=== PATIENT | male | born 1960 | race Caucasian/White ===

== ENCOUNTER 2017-04-23 14:45 | Emergency (ER) | payer OTHER ==
--- NOTE | 2017-04-23 14:45 | NUR ---
[facility]IB EMS who state pt was found ambulatory in a residential driveway with ETOH intoxication. On arrival pt stated he did not want to be seen. EMS brought pt's bicycle and pt was last seen walking towards his bycycle outside the ER. Security was notified.
== END 2017-04-23 14:52 | disposition left against medical advice (07) ==
LOC: ER 14:46
DX: Z53.21 Procedure and treatment not carried out due to patient leaving prior to being seen by health care provider (principal)

== ENCOUNTER 2022-02-26 20:18 | Emergency (ER) | payer MEDICARE, OTHER ==
[~2022-02-26] VITALS: Ht 172.7 cm; Wt 79.4 kg
[2022-02-26] MEDS ORDERED: TAMS-3 PO (21:49)
[2022-02-26] MEDS ORDERED: DAPA10TA PO (21:49)
[2022-02-26] MEDS ORDERED: LISI30TA4 PO (21:49)
[2022-02-26] MEDS ORDERED: ATOR80TA PO (21:49)
[2022-02-26] MEDS ORDERED: FENO145T21 PO (21:49)
--- NOTE | 2022-02-26 21:50 | NUR ---
After being triaged, patient was placed back in the waiting room due to no beds available in the ER.
--- NOTE | 2022-02-26 22:30 | NUR ---
Patient went up to registration window and stated to box office clerk that he did not want to wait anymore. Patient was seen leaving the ER. PATIENT WAS TRIAGED BUT NOT SEEN BY ERMD.
[2022-02-27] MEDS ORDERED: CEPH500C2 PO (19:03)
[2022-02-27] MEDS ORDERED: NEOM28.38 TP (19:03)
== END 2022-02-26 23:00 | disposition left against medical advice (07) ==
LOC: ER 20:38
DX: Z53.21 Procedure and treatment not carried out due to patient leaving prior to being seen by health care provider (principal)

== ENCOUNTER 2022-02-27 15:56 | Emergency (ER) | payer MEDICARE ==
[~2022-02-27] VITALS: Ht 172.7 cm; Wt 79.4 kg
[~2022-02-27 15:56] MED LIST: ATOR80TA PO; DAPA10TA PO; FENO145T21 PO; LISI30TA4 PO; TAMS-3 PO
[2022-02-27] MEDS ORDERED: CEFTRIAXONE /D5W 50ML IVPB **ER PYXIS IV ONE (17:14)
--- NOTE | 2022-02-27 18:30 | NUR ---
Pt seen by Dr. Holley for MSE.
[2022-02-27] MEDS ORDERED: CEPH500C2 PO (19:03)
[2022-02-27] MEDS ORDERED: NEOM28.38 TP (19:03)
--- NOTE | 2022-02-27 19:05 | NUR ---
Endorsed to Lillie SKELTON.
--- NOTE | 2022-02-27 19:08 | NUR ---
Patient discharged to home in stable condition. Written and verbal after care instructions given. Patient verbalizes understanding of instructions. Stressed follow up or return to ER for worsening s/s.
[2022-02-27 19:22] VITALS: BP 115/84
== END 2022-02-27 19:23 | disposition home or self-care (01) ==
LOC: ER 15:56
DX: S00.81XA Abrasion of other part of head, initial encounter (principal); Y08.89XA Assault by other specified means, initial encounter; Y92.89 Other specified places as the place of occurrence of the external cause; E11.9 Type 2 diabetes mellitus without complications; E78.5 Hyperlipidemia, unspecified; J43.9 Emphysema, unspecified; Z79.899 Other long term (current) drug therapy; Z79.84 Long term (current) use of oral hypoglycemic drugs
CPT/HCPCS: A4663; J0696